=== PATIENT | female | born 1985 | race Caucasian/White ===

== ENCOUNTER 2020-12-14 09:01 | Emergency (ER) | payer BC ==
[~2020-12-14] VITALS: Ht 162.6 cm; Wt 72.6 kg
[2020-12-14 09:05] VITALS: BP_SYST 122
[2020-12-14 09:24] VITALS: BP_SYST 122
== END 2020-12-14 09:25 ==
LOC: SED 09:01
DX: S80.12XA Contusion of left lower leg, initial encounter (principal); S80.11XA Contusion of right lower leg, initial encounter; Y04.2XXA Assault by strike against or bumped into by another person, initial encounter; Y93.89 Activity, other specified; Y92.89 Other specified places as the place of occurrence of the external cause; Y99.8 Other external cause status
CPT/HCPCS: 99283